=== PATIENT | female | born 1950 ===

== ENCOUNTER 2017-05-14 09:22 | Day surgery (SDC) | payer SELFPAY ==
[2017-05-14] MEDS ORDERED: Lactated Ringer's 500 ML IV ONE (10:29)
[2017-05-14 12:10] VITALS: TEMP 97; O2SAT 100
[2017-05-14 12:11] VITALS: BP 105/63; PULSE 80; RESP 18
== END 2017-05-14 12:45 | disposition home or self-care (01) ==
LOC: H.ENDO 09:22
PROVIDERS: ATTEND Internal Medicine Gastroenterology
DX: Z12.11 Encounter for screening for malignant neoplasm of colon (principal); K57.30 Diverticulosis of large intestine without perforation or abscess without bleeding; K64.8 Other hemorrhoids; E78.5 Hyperlipidemia, unspecified
CPT/HCPCS: 45378; J2250; J2704; J7120